=== PATIENT | female | born 1950 | race Caucasian/White ===

== ENCOUNTER 2022-11-09 20:12 | Emergency (ER) | payer MEDICARE, MEDICAID ==
[~2022-11-09] VITALS: Ht 162.6 cm; Wt 56.0 kg
[2022-11-09] MEDS ORDERED: TETanus/Pertussis (Acell)/Diphther VAC/PF (Tdap-Adult) 0.5ml syringe IMVAC ONE (21:40)
[2022-11-09 22:00] LABS: BASOPHILS # (AUTO) 0.1 X10'3 (0-0.2); BASOPHILS % (AUTO) 0.8 % (0-1); EOSINOPHILS # (AUTO) 0.1 X10'3 (0-0.9); EOSINOPHILS % (AUTO) 1.4 % (0-6); HEMATOCRIT 32.5 % (35.0-45.0); HEMOGLOBIN 10.5 g/dl (12.0-16.0); LYMPHOCYTES # (AUTO) 2.1 X10'3 (1.1-4.8); LYMPHOCYTES % (AUTO) 21.7 % (21-51); MEAN CORPUSCULAR HEMOGLOBIN 25.6 PG (27.0-31.0); MEAN CORPUSCULAR HGB CONC 32.4 g/dL (33.0-36.5); MEAN CORPUSCULAR VOLUME 79.1 FL (78-98); MEAN PLATELET VOLUME 8.5 FL (7.4-10.4); MONOCYTES # (AUTO) 0.9 X10'3 (0-0.9); MONOCYTES % (AUTO) 9.6 % (2-12); NEUTROPHILS # (AUTO) 6.4 X10'3 (1.8-7.7); NEUTROPHILS % (AUTO) 66.5 % (42-75); PLATELET COUNT 260 X10'3 (140-440); RED BLOOD COUNT 4.11 X10'6 (4.20-5.60); RED CELL DISTRIBUTION WIDTH 18.7 % (11.5-14.5); WHITE BLOOD COUNT 9.6 X10'3 (4.5-11.0)
[2022-11-09 22:10] LABS: ALANINE AMINOTRANSFERASE 13 U/L (12-78); ALBUMIN/GLOBULIN RATIO 1.1 (1.1-1.5); ALKALINE PHOSPHATASE 130 IU/L (46-116); ANION GAP 10 (8-16); ASPARTATE AMINO TRANSFERASE 9 U/L (10-37); BILIRUBIN,TOTAL 0.3 MG/DL (0.1-1.0); BLOOD UREA NITROGEN 16 MG/DL (7-18); BUN/CREATININE RATIO 16.7 (10.0-20.0); CALCIUM 9.3 MG/DL (8.5-10.1); CHLORIDE 100 MMOL/L (99-107); CREATININE 0.96 MG/DL (0.40-0.90); GLUCOSE 201 MG/DL (70-104); SODIUM 132 MMOL/L (135-145); TOTAL CARBON DIOXIDE 22.5 MMOL/L (24-32); TOTAL PROTEIN 7.8 G/DL (6.4-8.2); eGFR 57 ML/MIN
[2022-11-09 22:19] LABS: MICROCYTOSIS 1+; PLATELET ESTIMATE NORMAL
[2022-11-09 22:20] LABS: ANISOCYTOSIS 2+; TEAR DROP CELLS FEW
[2022-11-09] MEDS ORDERED: normal saline 500ml IV soln 500 ML IV ONE (22:55)
[2022-11-09 23:13] LABS: COLOR,URINE YELLOW (Yellow); GLUCOSE, URINE NEGATIVE (Neg); KETONES,URINE 15 mg/dl (Neg); LEUKOCYTE ESTERASE ,URINE TRACE (Neg); NITRITES, URINE NEGATIVE (Neg); OCCULT BLOOD,URINE NEGATIVE (Neg); PROTEIN,URINE TRACE mg/dl (Neg); UROBILINOGEN,URINE 0.2 E.U/dL (0.2-1.0)
[2022-11-09 23:16] LABS: UA COLLECTION TYPE CLN CATCH MIDSTREAM
[2022-11-09 23:19] LABS: CLARITY,URINE SLIGHTLY CLOUDY (Clear)
[2022-11-09 23:20] LABS: BACTERIA,URINE 1+ /HPF (Neg); MUCUS STRANDS FEW /LPF (Neg); SQUAMOUS EPITHELIAL CELL,UR FEW /LPF (FEW); TRANSITIONAL EPI CELLS,URINE FEW /HPF
[2022-11-09 23:21] LABS: HYALINE CASTS 0-3 /LPF (NEGATIVE); WBC CLUMPS,URINE FEW /HPF (NEGATIVE)
[2022-11-10] MEDS ORDERED: LEVO750T68 PO (00:02)
[2022-11-10] MEDS ORDERED: metoprolol tartrate 50mg tablet PO ONE (00:30)
[2022-11-10 00:50] VITALS: BP 199/101
[2022-11-26] MEDS ORDERED: LOSA50TA64 PO (15:59)
[2022-11-26] MEDS ORDERED: GLIM4TAB7 PO (15:59)
[2022-11-26] MEDS ORDERED: ZOLP5TAB8 PO (15:59)
[2022-11-26] MEDS ORDERED: METF-436 PO (15:59)
[2022-11-26] MEDS ORDERED: DEUT12TA PO (15:59)
[2022-11-26] MEDS ORDERED: ATOR20TA66 PO (15:59)
[2022-11-26] MEDS ORDERED: VALA500T41 PO (15:59)
[2022-11-26] MEDS ORDERED: LEVO75TA7 PO (15:59)
[2022-11-26] MEDS ORDERED: BUPR-353 PO (15:59)
[2022-11-26] MEDS ORDERED: BUPR-317 PO (15:59)
[2022-11-26] MEDS ORDERED: AMIT10TA6 PO (15:59)
[2022-11-26] MEDS ORDERED: HYDR-3964 PO (15:59)
[2022-11-26] MEDS ORDERED: METF-1203 PO (15:59)
[2022-11-26] MEDS ORDERED: INDLA60C PO (15:59)
[2022-11-26] MEDS ORDERED: AMLO10TA13 PO (19:22)
[2022-11-29] MEDS ORDERED: LEVO100T9 PO (12:39)
[2022-11-29] MEDS ORDERED: CLON0.1T2 PO (12:39)
[2022-11-29] MEDS ORDERED: FLO0.1T PO (12:39)
[2022-11-29] MEDS ORDERED: HYDR-3964 PO (13:22)
== END 2022-11-10 00:56 | disposition home or self-care (01) ==
LOC: ER 20:15
DX: S00.03XA Contusion of scalp, initial encounter (principal); G24.4 Idiopathic orofacial dystonia; E11.9 Type 2 diabetes mellitus without complications; F31.9 Bipolar disorder, unspecified; W19.XXXA Unspecified fall, initial encounter; Y93.89 Activity, other specified; Y92.89 Other specified places as the place of occurrence of the external cause; Y99.8 Other external cause status
CPT/HCPCS: 36415; 70450; 80053; 81001; 85008; 85025; 87077; 87088; 87186; 90471; 90715; 99285; J7040; A6446

== ENCOUNTER 2023-03-20 11:00 | Inpatient (IN) | payer MEDICARE, MEDICAID ==
[~2023-03-20] VITALS: Ht 170.2 cm; Wt 72.7 kg
[~2023-03-20 11:00] MED LIST: AMIT10TA6 PO; AMLO10TA13 PO; ATOR20TA66 PO; BUPR-317 PO; BUPR-353 PO; CLON0.1T2 PO; DEUT12TA PO; FLO0.1T PO; GLIM4TAB7 PO; HYDR-3964 PO; INDLA60C PO; LEVO100T9 PO; LOSA50TA64 PO; METF-1203 PO; METF-436 PO; VALA500T41 PO; ZOLP5TAB8 PO
[2023-03-20] MEDS ORDERED: ringers solution, lacted 1,000 ML IV ONE (14:25)
[2023-03-20 14:30] LABS: BILIRUBIN,URINE NEGATIVE (Neg); CLARITY,URINE SLIGHTLY CLOUDY (Clear); COLOR,URINE YELLOW (Yellow); GLUCOSE, URINE 250 mg/dl (Neg); KETONES,URINE TRACE mg/dl (Neg); LEUKOCYTE ESTERASE ,URINE SMALL (Neg); NITRITES, URINE NEGATIVE (Neg); OCCULT BLOOD,URINE NEGATIVE (Neg); PH,URINE 5.5 (4.8-8.0); PROTEIN,URINE 30 mg/dl (Neg); UROBILINOGEN,URINE 0.2 E.U/dL (0.2-1.0)
[2023-03-20 14:32] LABS: UA COLLECTION TYPE CLN CATCH MIDSTREAM
[2023-03-20 14:37] LABS: SQUAMOUS EPITHELIAL CELL,UR MANY /LPF (FEW)
[2023-03-20 14:39] LABS: BACTERIA,URINE 1+ /HPF (Neg); WBC CLUMPS,URINE FEW /HPF (NEGATIVE)
[2023-03-20 14:40] LABS: WBC,URINE 20-30 /HPF (0-4)
[2023-03-20 14:41] LABS: RBC,URINE 0-2 /HPF (0-2)
[2023-03-20 14:43] LABS: URINE AMPHETAMINE SCREEN NEGATIVE (Neg); URINE BARBITUATE SCREEN NEGATIVE (Neg); URINE BENZODIAZEPINES SCREEN NEGATIVE (Neg); URINE CANNABINOID SCREEN NEGATIVE (Neg); URINE COCAINE SCREEN NEGATIVE (Neg); URINE METHADONE SCREEN NEGATIVE (Neg); URINE OPIATE SCREEN NEGATIVE (Neg); URINE PHENCYCLIDINE SCREEN NEGATIVE (Neg)
[2023-03-20 15:49] LABS: ALANINE AMINOTRANSFERASE 11 U/L (12-78); ALBUMIN 3.4 G/DL (3.4-5.0); ALBUMIN/GLOBULIN RATIO 1.1 (1.1-1.5); ALKALINE PHOSPHATASE 56 IU/L (46-116); ANION GAP 16 (8-16); ASPARTATE AMINO TRANSFERASE 14 U/L (10-37); BILIRUBIN,TOTAL 0.5 MG/DL (0.1-1.0); BLOOD UREA NITROGEN 29 MG/DL (7-18); CALCIUM 9.1 MG/DL (8.5-10.1); CHLORIDE 99 MMOL/L (99-107); CREATININE 2.07 MG/DL (0.40-0.90); GLUCOSE 145 MG/DL (70-104); POTASSIUM 4.8 MMOL/L (3.5-5.1); SODIUM 136 MMOL/L (135-145); TOTAL CARBON DIOXIDE 21.2 MMOL/L (24-32); TOTAL PROTEIN 6.6 G/DL (6.4-8.2); eCRCL 24 ML/MIN; eGFR 23 ML/MIN
[2023-03-20 15:55] LABS: BASOPHILS % (AUTO) 0.4 % (0-1); EOSINOPHILS # (AUTO) 0.1 X10'3 (0-0.9); EOSINOPHILS % (AUTO) 0.7 % (0-6); HEMOGLOBIN 10.1 g/dl (12.0-16.0); LYMPHOCYTES # (AUTO) 1.7 X10'3 (1.1-4.8); LYMPHOCYTES % (AUTO) 16.7 % (21-51); MEAN CORPUSCULAR HEMOGLOBIN 28.6 PG (27.0-31.0); MEAN CORPUSCULAR HGB CONC 32.5 g/dL (33.0-36.5); MEAN CORPUSCULAR VOLUME 87.9 FL (78-98); MEAN PLATELET VOLUME 10.1 FL (7.4-10.4); MONOCYTES # (AUTO) 0.9 X10'3 (0-0.9); MONOCYTES % (AUTO) 8.9 % (2-12); NEUTROPHILS # (AUTO) 7.3 X10'3 (1.8-7.7); NEUTROPHILS % (AUTO) 73.3 % (42-75); PLATELET COUNT 208 X10'3 (140-440); RED BLOOD COUNT 3.53 X10'6 (4.20-5.60); RED CELL DISTRIBUTION WIDTH 18.5 % (11.5-14.5); WHITE BLOOD COUNT 9.9 X10'3 (4.5-11.0)
[2023-03-20 15:57] LABS: PRO BRAIN NATRIURETIC PEPTIDE 1330 PG/ML (0-125)
[2023-03-20] MEDS ORDERED: potassium Cl 40MEQ/1/2NS 520ml 520 ML IV PRN (18:10)
[2023-03-20] MEDS ORDERED: ondansetron/PF 4mg/2ml inj IV PRN (18:10)
[2023-03-20] MEDS ORDERED: magnesium 2GM in 50ml NS 50 ML IV PRN (18:10)
[2023-03-20] MEDS ORDERED: magnesium 4gm in 100ml NS 100 ML IV PRN (18:10)
[2023-03-20] MEDS ORDERED: potassium Cl 20 mEq SR tablet PO PRN ×2 (18:10)
[2023-03-20] MEDS ORDERED: magnesium hydroxide 30ml (MOM) UD suspension PO PRN (18:10)
[2023-03-20] MEDS ORDERED: magnesium Cl slow-release 64mg tablet PO PRN (18:10)
[2023-03-20] MEDS ORDERED: mag hydrox/Alum hydrox/simeth 30ml oral suspension PO PRN (18:10)
[2023-03-20] MEDS ORDERED: acetaminophen 325mg tablet PO PRN (18:10)
[2023-03-20 18:37] LABS: HEMOGLOBIN A1C 8.4 % (4.5-6.2)
[2023-03-20] MEDS ORDERED: normal saline 500ml IV soln 500 ML IV ONE (18:45)
[2023-03-20] MEDS ORDERED: dextrose 50%-water 50ml dispensing syringe IV PRN ×2 (19:10)
[2023-03-20] MEDS ORDERED: MESSAGE TO PHARMACY PO ONE (19:10)
[2023-03-20] MEDS ORDERED: DEXTROSE 15 GM of carb/4 tabs (each vial/BOTTLE has 4 tablets) PO PRN ×2 (19:10)
[2023-03-20] MEDS ORDERED: glucagon, human recombinant 1mg kit SUBCUT PRN (19:10)
[2023-03-20 19:42] LABS: ABG BASE EXCESS -5.1 mmol/L (-2.0-2.0); ABG HCO3 18.2 mmol/L (22.0-26.0); ABG OXYGEN SATURATION 95.3 % (94-97); ABG PCO2 (T) 28.4 mmHg (32.0-45.0); ABG PH (T) 7.425 (7.350-7.450); ABG PO2 (T) 77.6 mmHg (75.0-100.0); FCOHb 0.3 % (0.0-3.9); FHHb 4.7 % (0.0-5.0); FMetHb 0.3 % (0.0-1.5); FO2Hb 94.7 % (94-97); MODE ROOM AIR; TOTAL HEMOGLOBIN 11.1 G/dl (12.0-16.0)
[2023-03-20] MEDS: K and/or MAG REPLACEMENT MC SCH (20:00)
[2023-03-20] MEDS ORDERED: CARB1TAB35 PO (20:01)
[2023-03-20] MEDS: CefTRIAXone/D5W-Rocephin 1gm 50 ML IV SCH (20:12)
[2023-03-20 20:45] VITALS: BP 186/72; PULSE 99; RESP 16; TEMP 98.1; O2SAT 94
[2023-03-20] MEDS: normal saline 1000ml 1,000 ML IV SCH (20:49)
[2023-03-20] MEDS: heparin, porcine 5000 units/ml vial SQ SCH (20:49)
[2023-03-20] MEDS: insulin glargine (Lantus) pen - multi-dose SQ SCH (21:00)
[2023-03-20 22:00] VITALS: BP 120/88; PULSE 81; RESP 16; TEMP 97.4; O2SAT 97
[2023-03-21] MEDS: normal saline 1000ml 1,000 ML IV SCH ×3 (04:45→16:59)
[2023-03-21 06:00] VITALS: BP 147/84; PULSE 77; RESP 16; TEMP 97.7; O2SAT 95
--- NOTE | 2023-03-21 06:22 | NUR ---
Problems reprioritized. Patient report given, questions answered & plan of care reviewed with Teresita EDMONDS.
--- NOTE | 2023-03-21 06:25 | NUR ---
RECEIVED REPORT FROM KENDAL MCKEON
[2023-03-21 06:34] LABS: BASOPHILS # (AUTO) 0.1 X10'3 (0-0.2); BASOPHILS % (AUTO) 0.6 % (0-1); EOSINOPHILS # (AUTO) 0.1 X10'3 (0-0.9); EOSINOPHILS % (AUTO) 1.2 % (0-6); HEMATOCRIT 33.6 % (35.0-45.0); LYMPHOCYTES # (AUTO) 1.7 X10'3 (1.1-4.8); LYMPHOCYTES % (AUTO) 16.4 % (21-51); MEAN CORPUSCULAR HEMOGLOBIN 28.6 PG (27.0-31.0); MEAN CORPUSCULAR HGB CONC 32.8 g/dL (33.0-36.5); MEAN CORPUSCULAR VOLUME 87.3 FL (78-98); MEAN PLATELET VOLUME 9.6 FL (7.4-10.4); MONOCYTES # (AUTO) 1.2 X10'3 (0-0.9); MONOCYTES % (AUTO) 11.6 % (2-12); NEUTROPHILS # (AUTO) 7.5 X10'3 (1.8-7.7); NEUTROPHILS % (AUTO) 70.2 % (42-75); PLATELET COUNT 220 X10'3 (140-440); RED BLOOD COUNT 3.85 X10'6 (4.20-5.60); RED CELL DISTRIBUTION WIDTH 18.9 % (11.5-14.5); WHITE BLOOD COUNT 10.7 X10'3 (4.5-11.0)
[2023-03-21 07:05] LABS: ALBUMIN 3.4 G/DL (3.4-5.0); ANION GAP 15 (8-16); BLOOD UREA NITROGEN 31 MG/DL (7-18); BUN/CREATININE RATIO 16.8 (10.0-20.0); CALCIUM 9.2 MG/DL (8.5-10.1); CHLORIDE 99 MMOL/L (99-107); CHOL/HDL RATIO 3.7 (0.00-4.99); CHOLESTEROL 139 MG/DL (0-200); CREATININE 1.85 MG/DL (0.40-0.90); GLUCOSE 222 MG/DL (70-104); HDL CHOLESTEROL 38 MG/DL (35-60); LDL CHOLESTEROL 58 MG/DL (50-100); POTASSIUM 4.5 MMOL/L (3.5-5.1); SODIUM 134 MMOL/L (135-145); TOTAL CARBON DIOXIDE 20.1 MMOL/L (24-32); TRIGLYCERIDES 345 MG/DL (20-135); eCRCL 26 ML/MIN; eGFR 27 ML/MIN
[2023-03-21] MEDS: K and/or MAG REPLACEMENT MC SCH ×2 (08:00→20:00)
[2023-03-21] MEDS: insulin Lispro (HumaLOG) vial - multi-dose SQ SCH ×3 (08:34→21:22)
[2023-03-21] MEDS: heparin, porcine 5000 units/ml vial SQ SCH ×2 (08:40→21:27)
[2023-03-21] MEDS: CefTRIAXone/D5W-Rocephin 1gm 50 ML IV SCH (09:14)
[2023-03-21 10:00] VITALS: BP 160/79; PULSE 86; RESP 12; TEMP 98.1; O2SAT 96
--- NOTE | 2023-03-21 11:16 | NUR ---
DM Consult: Pt admit DX rule out stroke, possible OD, ABRAHAM, and DM A1C 8.3% is poor historian per MD note. Hx DM current A1C down from prior 8.6% 11/27/22 when written DM diet ed was provided by GLENNY per EMR. DM ed deferred at this time; will remain available for nutrition questions/concerns. Addendum: 03/21/23 at [address] Amended: Links added.
[2023-03-21] MEDS: aspirin 81mg, enteric-coated 1 TAB TABLET.DR PO SCH (15:43)
[2023-03-21 18:00] VITALS: BP 188/93; PULSE 90; RESP 22; TEMP 97.2; O2SAT 96
--- NOTE | 2023-03-21 18:18 | NUR ---
GAVE REPORT TO October,
[2023-03-21] MEDS: insulin glargine (Lantus) pen - multi-dose SQ SCH (21:22)
[2023-03-21 22:00] VITALS: BP 179/94; PULSE 87; RESP 16; TEMP 98.3; O2SAT 95
[2023-03-22 02:00] VITALS: BP 182/106; PULSE 95; RESP 15; TEMP 98.3; O2SAT 97
[2023-03-22] MEDS: normal saline 1000ml 1,000 ML IV SCH ×3 (02:24→20:32)
[2023-03-22 06:00] VITALS: BP 173/96; PULSE 88; RESP 15; TEMP 98.1; O2SAT 93
--- NOTE | 2023-03-22 06:20 | NUR ---
RECEIVED REPORT FROM CECILY, RN
[2023-03-22 06:23] LABS: ALBUMIN 3.1 G/DL (3.4-5.0); ANION GAP 12 (8-16); BLOOD UREA NITROGEN 23 MG/DL (7-18); CHLORIDE 100 MMOL/L (99-107); CREATININE 1.44 MG/DL (0.40-0.90); GLUCOSE 254 MG/DL (70-104); MAGNESIUM 1.6 MG/DL (1.5-2.4); POTASSIUM 3.7 MMOL/L (3.5-5.1); SODIUM 135 MMOL/L (135-145); TOTAL CARBON DIOXIDE 23.2 MMOL/L (24-32); eCRCL 34 ML/MIN; eGFR 36 ML/MIN
[2023-03-22 06:44] LABS: BASOPHILS # (AUTO) 0.1 X10'3 (0-0.2); BASOPHILS % (AUTO) 0.6 % (0-1); EOSINOPHILS # (AUTO) 0.1 X10'3 (0-0.9); EOSINOPHILS % (AUTO) 1.4 % (0-6); HEMOGLOBIN 10.9 g/dl (12.0-16.0); LYMPHOCYTES # (AUTO) 1.7 X10'3 (1.1-4.8); LYMPHOCYTES % (AUTO) 19.2 % (21-51); MEAN CORPUSCULAR VOLUME 87.4 FL (78-98); MEAN PLATELET VOLUME 9.4 FL (7.4-10.4); MONOCYTES # (AUTO) 1.2 X10'3 (0-0.9); MONOCYTES % (AUTO) 12.9 % (2-12); NEUTROPHILS % (AUTO) 65.9 % (42-75); PLATELET COUNT 183 X10'3 (140-440); RED BLOOD COUNT 3.89 X10'6 (4.20-5.60); RED CELL DISTRIBUTION WIDTH 18.8 % (11.5-14.5); WHITE BLOOD COUNT 9.1 X10'3 (4.5-11.0)
[2023-03-22] MEDS: aspirin 81mg, enteric-coated 1 TAB TABLET.DR PO SCH (07:12)
[2023-03-22] MEDS: heparin, porcine 5000 units/ml vial SQ SCH ×2 (07:12→20:19)
[2023-03-22] MEDS: CefTRIAXone/D5W-Rocephin 1gm 50 ML IV SCH (07:14)
[2023-03-22] MEDS: K and/or MAG REPLACEMENT MC SCH ×2 (08:00→20:00)
[2023-03-22] MEDS ORDERED: cloNIDine 0.1 mg tablet PO PRN (08:10)
[2023-03-22] MEDS ORDERED: zolpidem 5mg tablet PO PRN (08:10)
[2023-03-22] MEDS: insulin Lispro (HumaLOG) vial - multi-dose SQ SCH ×3 (09:05→20:23)
[2023-03-22 09:19] LABS: ANISOCYTOSIS 2+; ELLIPTOCYTES FEW; PLATELET ESTIMATE NORMAL
[2023-03-22 09:20] LABS: LARGE PLATELETS FEW
[2023-03-22 10:00] VITALS: BP 165/83; PULSE 96; RESP 18; TEMP 98.1; O2SAT 97
--- NOTE | 2023-03-22 12:16 | NUR ---
PRESSURE ULCER EDUCATION: DEFINITION: A pressure ulcer is an area of skin that breaks down when you stay in one position too long. The constant pressure against the skin reduces the blood flow to that area and the affected tissue dies. CAUSES: "Being bedridden or in a wheelchair "Fragile skin "Having a chronic condition, such as diabetes or vascular disease "Inability to move certain parts of your body without assistance "Older age "Incontinence of urine or stool SYMPTOMS: "A reddened area that DOES NOT turn white when pressed on - this can be the beginning of a pressure ulcer "A blister, deep sore or a crater - these can be advanced pressure ulcers FIRST AID: "Relieve the pressure on this area "Keep the area clean and dry "Call your primary doctor if you see any of the above symptoms "DO NOT massage the area "DO NOT use a donut shaped or ring shaped pillow- these actually interfere with the blood flow and cause complications PREVENTION: "Check for pressure ulcers everyday "Change position at least every two hours to relieve pressure "Use items that help relieve pressure- pillows, sheepskin, foam padding, and powders. "Keep skin clean and dry "Eat healthy well balanced meals "Exercise daily IF YOU SEE ANY OF THESE SYMPTOMS WHILE IN THE HOSPITAL - TELL YOUR NURSE IMMEDIATELY. IF YOU SEE ANY OF THESE SYMPTOMS WHILE AT HOME OR HAVE ANY QUESTIONS OR CONCERNS ABOUT PRESSURE ULCERS - CALL YOUR PRIMARY DOCTOR IMMEDIATELY. Addendum: 03/22/23 at 1216 by Mao Chen RN Amended: Links added.
[2023-03-22] MEDS: carbidoba-levodopa 25-100mg tablet PO SCH ×2 (12:51→17:12)
[2023-03-22] MEDS ORDERED: magnesium 2GM in 50ml NS 50 ML IV PRN (14:20)
[2023-03-22] MEDS ORDERED: magnesium 4gm in 100ml NS 100 ML IV PRN (14:20)
[2023-03-22] MEDS ORDERED: magnesium Cl slow-release 64mg tablet PO PRN (14:20)
[2023-03-22 18:00] VITALS: BP 189/97; PULSE 102; RESP 18; TEMP 98.3; O2SAT 97
--- NOTE | 2023-03-22 18:00 | NUR ---
Patient in room [facility] 4013. I have received report from KENDAL Lo and had the opportunity to ask questions and assume patient care.
--- NOTE | 2023-03-22 18:13 | NUR ---
gave report to steven rivero
[2023-03-22] MEDS: insulin glargine (Lantus) pen - multi-dose SQ SCH (20:26)
[2023-03-22] MEDS: DEUTETRABENAZINE 12 MG PO SCH (20:57)
[2023-03-22] MEDS ORDERED: atorvastatin 20mg tablet PO SCH (21:00)
[2023-03-22 22:00] VITALS: BP 170/104; PULSE 61; RESP 15; TEMP 98.4; O2SAT 99
[2023-03-23 01:58] VITALS: BP 170/77; PULSE 85; RESP 15; TEMP 98.2; O2SAT 96
--- NOTE | 2023-03-23 06:14 | NUR ---
Problems reprioritized. Patient report given, questions answered & plan of care reviewed with RANDOLPH Guzmán.
[2023-03-23 06:19] LABS: BASOPHILS % (AUTO) 0.5 % (0-1); EOSINOPHILS # (AUTO) 0.1 X10'3 (0-0.9); EOSINOPHILS % (AUTO) 1.1 % (0-6); HEMATOCRIT 33.2 % (35.0-45.0); HEMOGLOBIN 10.9 g/dl (12.0-16.0); LYMPHOCYTES # (AUTO) 1.7 X10'3 (1.1-4.8); LYMPHOCYTES % (AUTO) 18.9 % (21-51); MEAN CORPUSCULAR HEMOGLOBIN 28.7 PG (27.0-31.0); MEAN CORPUSCULAR HGB CONC 32.7 g/dL (33.0-36.5); MEAN CORPUSCULAR VOLUME 87.6 FL (78-98); MEAN PLATELET VOLUME 8.9 FL (7.4-10.4); MONOCYTES % (AUTO) 11.9 % (2-12); NEUTROPHILS # (AUTO) 5.9 X10'3 (1.8-7.7); NEUTROPHILS % (AUTO) 67.6 % (42-75); PLATELET COUNT 170 X10'3 (140-440); RED BLOOD COUNT 3.79 X10'6 (4.20-5.60); RED CELL DISTRIBUTION WIDTH 18.2 % (11.5-14.5); WHITE BLOOD COUNT 8.8 X10'3 (4.5-11.0)
--- NOTE | 2023-03-23 06:25 | NUR ---
I have received report from KENDAL Tomlinson and had the opportunity to ask questions and assume patient care. No distress at this time.
[2023-03-23 06:36] VITALS: BP 194/111; PULSE 102; RESP 15; TEMP 98.6; O2SAT 96
[2023-03-23 06:48] LABS: ALBUMIN 3.1 G/DL (3.4-5.0); ANION GAP 12 (8-16); BLOOD UREA NITROGEN 18 MG/DL (7-18); BUN/CREATININE RATIO 15.4 (10.0-20.0); CALCIUM 8.3 MG/DL (8.5-10.1); CHLORIDE 101 MMOL/L (99-107); CREATININE 1.17 MG/DL (0.40-0.90); GLUCOSE 306 MG/DL (70-104); MAGNESIUM 1.2 MG/DL (1.5-2.4); POTASSIUM 3.6 MMOL/L (3.5-5.1); SODIUM 135 MMOL/L (135-145); TOTAL CARBON DIOXIDE 21.9 MMOL/L (24-32); eCRCL 42 ML/MIN; eGFR 45 ML/MIN
[2023-03-23 06:56] VITALS: BP 168/78; PULSE 78; RESP 16; O2SAT 96
--- NOTE | 2023-03-23 06:58 | NUR ---
Pt BP is slightly elevated, BP HTN medications will be administered. Pt is asymptomatic. Addendum: 03/23/23 at 0658 by Arielle Markham LVN, LVN Amended: Links added.
[2023-03-23] MEDS ORDERED: levoTHYROXINE 100mcg tablet PO SCH (07:00)
[2023-03-23] MEDS: DEUTETRABENAZINE 12 MG PO SCH (07:33)
[2023-03-23] MEDS: heparin, porcine 5000 units/ml vial SQ SCH (07:33)
[2023-03-23] MEDS: aspirin 81mg, enteric-coated 1 TAB TABLET.DR PO SCH (07:34)
[2023-03-23] MEDS: carbidoba-levodopa 25-100mg tablet PO SCH ×2 (07:34→12:32)
[2023-03-23] MEDS: K and/or MAG REPLACEMENT MC SCH (07:35)
[2023-03-23] MEDS: normal saline 1000ml 1,000 ML IV SCH (07:35)
[2023-03-23 08:00] VITALS: RESP 16; O2SAT 98
[2023-03-23] MEDS ORDERED: buPROPion SR 150mg tablet PO SCH (08:00)
[2023-03-23] MEDS ORDERED: losartan 50mg tablet PO SCH (08:00)
[2023-03-23] MEDS ORDERED: propranolol LA 60 MG cap.SA.24H PO SCH (08:00)
[2023-03-23] MEDS: CefTRIAXone/D5W-Rocephin 1gm 50 ML IV SCH (08:52)
[2023-03-23] MEDS: insulin Lispro (HumaLOG) vial - multi-dose SQ SCH (09:04)
[2023-03-23 10:00] VITALS: BP 165/83; PULSE 96; RESP 18; TEMP 98.1; O2SAT 97
--- NOTE | 2023-03-23 13:33 | NUR ---
promotional table spacer promotional table spacer Page Sent promotional table spacer PAGER ID: [phone] MESSAGE: Arielle [phone] Pt in rm: [id number] A Andrés Ernst May I please switch the IV Ativan to PO please? (94 character message out of a maximum of 240)
--- NOTE | 2023-03-23 14:02 | NUR ---
called Beck gary and gave report to RANDOLPH Roca. Relayed patients current plan of care. Pt to be transferred by thuy cargo at 1415. Pt stable at this time.
--- NOTE | 2023-03-23 16:00 | NUR ---
I have reviewed and agree with interventions, assessments, and documentation by Arielle Quigley LVN .
== END 2023-03-23 14:50 | DRG 64 ==
LOC: ER 11:01 → ED HOLD 18:16 → EDBEDREQ 20:08 → ORTHO 4S 20:31
PROVIDERS: ADMIT Internal Medicine; ATTEND Internal Medicine
DX: I63.9 Cerebral infarction, unspecified (principal); N17.0 Acute kidney failure with tubular necrosis; N39.0 Urinary tract infection, site not specified; E87.20 Acidosis, unspecified; Z66 Do not resuscitate; E03.9 Hypothyroidism, unspecified; I67.82 Cerebral ischemia; E11.9 Type 2 diabetes mellitus without complications; I50.9 Heart failure, unspecified; G83.34 Monoplegia, unspecified affecting left nondominant side; I11.0 Hypertensive heart disease with heart failure; E86.0 Dehydration; F31.9 Bipolar disorder, unspecified; G20 Parkinson's disease; Z83.3 Family history of diabetes mellitus; Z81.1 Family history of alcohol abuse and dependence; Z79.899 Other long term (current) drug therapy
CPT/HCPCS: 36415; 36600; 70450; 70544; 70551; 71045; 80048; 80053; 80061; 80305; 81001; 82803; 82948; 83036; 83735; 83880; 84484; 85008; 85018; 85025; 87077; 87081; 87088; 87186; 93306; 93880; 97110; 97161; 97530; 99285; A4353; A5200; A6212; A6213; A6449; G0378; J0696; J1644; J1815; J3475; J7030; J7040; J7120